=== PATIENT | female | born 1990 | race Caucasian/White ===

== ENCOUNTER 2020-05-27 20:03 | Emergency (ER) | payer OTHER ==
[2020-05-27 20:30] VITALS: TEMP 98.2; BMI 26.5
[2020-05-27] MEDS ORDERED: ACETAMINOPHEN 325 MG TABLET (FP) PO ONE (21:52)
[2020-05-27] MEDS ORDERED: ACETAMINOPHEN 325 MG TABLET (FP) ONE (22:12)
[2020-05-27 22:25] VITALS: BP 133/81; PULSE 99
== END 2020-05-27 22:24 | disposition home or self-care (01) ==
LOC: JERFT 20:03 → JER 20:03
PROC: 0X950ZZ Drainage of Left Axilla, Open Approach (ICD-10-PCS; principal; 2020-05-27)
DX: L02.412 Cutaneous abscess of left axilla (principal)
CPT/HCPCS: 10060; 36415; 87389; 99284-25

== ENCOUNTER 2023-10-09 09:23 | Day surgery (SDC) | payer OTHER ==
[2023-10-09] MEDS: FERRIC CARBOXYMALTOSE 750 MG in SODIUM CHLORIDE 250 ML IVPB ONE (09:27)
[2023-10-09 10:38] VITALS: RESP 16; TEMP 97.8
[2023-10-09 10:41] VITALS: BP 106/66; PULSE 64
== END 2023-10-09 10:30 | disposition home or self-care (01) ==
LOC: J7W 09:23 → JONCNONCHE 09:23
PROVIDERS: ATTEND Internal Medicine Hematology & Oncology
PROC: 3E033GC Introduction of Other Therapeutic Substance into Peripheral Vein, Percutaneous Approach (ICD-10-PCS; principal; 2023-10-09)
DX: E61.1 Iron deficiency (principal)
CPT/HCPCS: 96365; J1439

== ENCOUNTER 2023-10-12 14:31 | Emergency (ER) | payer OTHER ==
[2023-10-12 14:37] VITALS: BP 120/80; TEMP 98.5; BMI 27.4
[2023-10-12 15:57] LABS: INR 1.11 (0.83-1.09); PROTHROMBIN TIME (PATIENT) 12.7 SEC (9.7-13.0)
[2023-10-12 15:59] LABS: ACTIVATED PTT 19.9 SECONDS (25.2-36.5)
[2023-10-12 16:08] LABS: POTASSIUM 5.6 mmol/L (3.5-5.1)
[2023-10-12 16:10] LABS: ALBUMIN 4.1 g/dl (3.4-5.0); CALCIUM 9.4 mg/dL (8.5-10.1)
[2023-10-12 16:11] LABS: BLOOD UREA NITROGEN 11.9 mg/dL (7-18)
[2023-10-12 16:15] LABS: BILIRUBIN,TOTAL 0.4 mg/dL (0.2-1); TOT PROT 8.4 g/dl (6.4-8.2)
[2023-10-12 16:35] LABS: EPI CELLS >36 /uL (0-25.1); HYALINE CASTS 6 /uL (0-3.1); PH,URINE 6.5 (5.0-8.0); URINE APPEARANCE CLOUDY; URINE BACTERIA 902 /uL (0-1359); URINE BILIRUBIN NEGATIVE (NEGATIVE); URINE COLOR YELLOW; URINE GLUCOSE (UA) NEGATIVE (NEGATIVE); URINE KETONE TRACE (NEGATIVE); URINE LEUK ESTERASE TRACE (NEGATIVE); URINE NITRITE NEGATIVE (NEGATIVE); URINE PROTEIN 1+ (NEGATIVE); URINE RBC 29 /uL (0-23.9); URINE WBC 132 /uL (0-25.8)
[2023-10-12 16:40] LABS: CREATININE 0.7 mg/dL (0.55-1.3)
[2023-10-12] MEDS ORDERED: ACETAMINOPHEN INJECTION 100 ML IVPB ONE (17:15)
[2023-10-12 17:16] LABS: BASO % 0.6 % (0-2.0); EOS % 1.1 % (0-4.5); HEMATOCRIT 35.9 % (32.4-45.2); HEMOGLOBIN 11.7 GM/dL (10.7-15.3); LYMPH % 15.8 % (8-40); MCH 27.1 pg (25.7-33.7); MCHC 32.7 g/dl (32.0-36.0); MEAN CELL VOLUME 82.8 fl (80-96); MEAN PLT VOLUME 6.9 fl (7.5-11.1); MONO % 9.1 % (3.8-10.2); NEUT % 73.4 % (42.8-82.8); PLATELET COUNT 441 10^3/uL (134-434); RBC 4.33 M/mm3 (3.60-5.2); RDW 15.4 % (11.6-15.6); WHITE BLOOD COUNT 7.8 K/mm3 (4.0-10.0)
[2023-10-12] MEDS ORDERED: FAMOTIDINE 10 MG/ML VIAL IVPB ONE ×2 (17:16)
[2023-10-12] MEDS ORDERED: MAG HYDROX/AL HYDROX/SIMETH 30 ML UNIT-DOSE CUP ONE (17:16)
[2023-10-12] MEDS ORDERED: ONDANSETRON 4 MG/2 ML VIAL ONE (17:16)
[2023-10-12] MEDS: SODIUM CHLORIDE 0.9% 500 ML INFUS.BAG IV ONE (17:29)
[2023-10-12] MEDS: ACETAMINOPHEN 1000 MG/100 ML BAG IVPB ONE (17:29)
[2023-10-12] MEDS: MAG HYDROX/AL HYDROX/SIMETH 30 ML UNIT-DOSE CUP PO ONE (17:29)
[2023-10-12] MEDS: FAMOTIDINE 20 MG/50 ML IVPB 20 MG/50 ML MG IVPB ONE (17:29)
[2023-10-12] MEDS: ONDANSETRON 4 MG/2 ML VIAL IVPUSH ONE (17:29)
[2023-10-12 17:41] LABS: BLOOD UREA NITROGEN 10.8 mg/dL (7-18); CALCIUM 9.3 mg/dL (8.5-10.1)
[2023-10-12 17:46] LABS: BILIRUBIN,TOTAL 0.3 mg/dL (0.2-1); TOT PROT 7.7 g/dl (6.4-8.2)
[2023-10-12 17:59] LABS: CREATININE 0.7 mg/dL (0.55-1.3)
[2023-10-12] MEDS ORDERED: KETOROLAC TROMETHAMINE 15 MG/ML VIAL ONE (18:10)
[2023-10-12] MEDS: KETOROLAC TROMETHAMINE 15 MG/ML VIAL IVPUSH ONE (18:13)
[2023-10-12] MEDS ORDERED: CEPHALEXIN MONOHYDRATE 500 MG CAPSULE (UD) PO ONE (18:27)
[2023-10-12 18:40] VITALS: PULSE 82; RESP 18
== END 2023-10-12 18:40 | disposition home or self-care (01) ==
LOC: JER 14:31
PROC: 3E033GC Introduction of Other Therapeutic Substance into Peripheral Vein, Percutaneous Approach (ICD-10-PCS; principal; 2023-10-12)
PROC: 3E033NZ Introduction of Analgesics, Hypnotics, Sedatives into Peripheral Vein, Percutaneous Approach (ICD-10-PCS; 2023-10-12)
PROC: 3E0333Z Introduction of Anti-inflammatory into Peripheral Vein, Percutaneous Approach (ICD-10-PCS; 2023-10-12)
PROC: 3E033GC Introduction of Other Therapeutic Substance into Peripheral Vein, Percutaneous Approach (ICD-10-PCS; 2023-10-12)
DX: N39.0 Urinary tract infection, site not specified (principal); R10.31 Right lower quadrant pain; R53.83 Other fatigue; R51.9 Headache, unspecified; R11.0 Nausea; R19.7 Diarrhea, unspecified; Z20.822 Contact with and (suspected) exposure to COVID-19
CPT/HCPCS: 0241U-QW; 36415; 76830-TC; 80053; 81003; 83605; 83690; 84703; 85025; 85610; 85730; 86850; 86900; 86901; 87086; 93005; 93010; 99285-25; J0131

== ENCOUNTER 2023-10-16 10:11 | Day surgery (SDC) | payer OTHER ==
[2023-10-16] MEDS: FERRIC CARBOXYMALTOSE 750 MG in SODIUM CHLORIDE 250 ML IVPB ONE (09:32)
[2023-10-16 12:20] VITALS: RESP 18; TEMP 98.4
[2023-10-16 12:22] VITALS: BP 110/72; PULSE 79
== END 2023-10-16 10:30 | disposition home or self-care (01) ==
LOC: JONCNONCHE 10:11 → J7W 10:15 → JONCNONCHE 10:30
PROVIDERS: ATTEND Internal Medicine Hematology & Oncology
PROC: 3E033GC Introduction of Other Therapeutic Substance into Peripheral Vein, Percutaneous Approach (ICD-10-PCS; principal; 2023-10-16)
DX: D50.9 Iron deficiency anemia, unspecified (principal)
CPT/HCPCS: 96365; J1439

== ENCOUNTER 2024-03-04 10:25 | Emergency (ER) | payer OTHER ==
[2024-03-04 10:47] VITALS: BP 115/77; PULSE 102; RESP 17; TEMP 98.6; BMI 27.6
[2024-03-04] MEDS: SODIUM CHLORIDE 0.9% 500 ML INFUS.BAG IV ONE (12:30)
[2024-03-04] MEDS: ONDANSETRON 4 MG/2 ML VIAL IVPUSH ONE (12:40)
[2024-03-04] MEDS: ACETAMINOPHEN 1000 MG/100 ML BAG IVPB ONE (12:40)
[2024-03-04] MEDS: FAMOTIDINE 20 MG/50 ML IVPB 20 MG/50 ML MG IVPB ONE (12:40)
[2024-03-04 12:49] LABS: BASO % 0.3 % (0-2.0); EOS % 1.3 % (0-4.5); HEMATOCRIT 40.5 % (32.4-45.2); HEMOGLOBIN 13.5 GM/dL (10.7-15.3); LYMPH % 19.7 % (8-40); MCH 30.5 pg (25.7-33.7); MCHC 33.3 g/dl (32.0-36.0); MEAN CELL VOLUME 91.7 fl (80-96); MEAN PLT VOLUME 6.9 fl (7.5-11.1); MONO % 7.3 % (3.8-10.2); NEUT % 71.4 % (42.8-82.8); PLATELET COUNT 426 10^3/uL (134-434); RBC 4.42 M/mm3 (3.60-5.2); RDW 12.9 % (11.6-15.6); WHITE BLOOD COUNT 8.4 K/mm3 (4.0-10.0)
[2024-03-04] MEDS ORDERED: ACETAMINOPHEN INJECTION 100 ML ONE (12:49)
[2024-03-04] MEDS ORDERED: FAMOTIDINE 20 MG/50 ML IVPB 20 MG/50 ML MG IVPB ONE (12:49)
[2024-03-04] MEDS ORDERED: ONDANSETRON 4 MG/2 ML VIAL ONE (12:49)
[2024-03-04 13:06] LABS: POTASSIUM 3.7 mmol/L (3.5-5.1)
[2024-03-04 13:08] LABS: ALBUMIN 4.3 g/dl (3.4-5.0); CALCIUM 9.6 mg/dL (8.5-10.1); MAGNESIUM 1.9 mg/dL (1.8-2.4)
[2024-03-04 13:11] LABS: CREATININE 0.6 mg/dL (0.55-1.3)
[2024-03-04 13:12] LABS: BILIRUBIN,TOTAL 0.7 mg/dL (0.2-1)
[2024-03-04 13:13] LABS: TOT PROT 7.4 g/dl (6.4-8.2)
[2024-03-04 16:41] LABS: HIV INTERPRETATION NEGATIVE (NEGATIVE)
== END 2024-03-04 14:03 | disposition home or self-care (01) ==
LOC: JER 10:25
PROC: 3E033GC Introduction of Other Therapeutic Substance into Peripheral Vein, Percutaneous Approach (ICD-10-PCS; principal; 2024-03-04)
PROC: 3E033NZ Introduction of Analgesics, Hypnotics, Sedatives into Peripheral Vein, Percutaneous Approach (ICD-10-PCS; 2024-03-04)
PROC: 3E033GC Introduction of Other Therapeutic Substance into Peripheral Vein, Percutaneous Approach (ICD-10-PCS; 2024-03-04)
DX: R11.2 Nausea with vomiting, unspecified (principal); R19.7 Diarrhea, unspecified
CPT/HCPCS: 36415; 80053; 83690; 83735; 84703; 85025; 86803; 87389; 99284-25; J0131

== ENCOUNTER 2024-04-30 22:18 | Emergency (ER) | payer OTHER ==
[2024-04-30 22:39] VITALS: RESP 20; TEMP 99; BMI 26.2
[2024-04-30 23:07] VITALS: BP 112/70; PULSE 86
[2024-04-30 23:46] LABS: BASO % 0.8 % (0-2.0); EOS % 0.9 % (0-4.5); HEMATOCRIT 38.2 % (32.4-45.2); HEMOGLOBIN 12.6 GM/dL (10.7-15.3); LYMPH % 16.6 % (8-40); MCH 30.3 pg (25.7-33.7); MCHC 32.9 g/dl (32.0-36.0); MEAN CELL VOLUME 92.1 fl (80-96); MEAN PLT VOLUME 6.9 fl (7.5-11.1); MONO % 7.6 % (3.8-10.2); NEUT % 74.1 % (42.8-82.8); PLATELET COUNT 491 10^3/uL (134-434); RBC 4.14 M/mm3 (3.60-5.2); RDW 12.9 % (11.6-15.6); WHITE BLOOD COUNT 11.4 K/mm3 (4.0-10.0)
[2024-05-01 00:16] LABS: POTASSIUM 4.2 mmol/L (3.5-5.1)
[2024-05-01 00:18] LABS: CALCIUM 9.8 mg/dL (8.5-10.1)
[2024-05-01 00:19] LABS: BLOOD UREA NITROGEN 12.7 mg/dL (7-18)
[2024-05-01 00:22] LABS: CREATININE 0.6 mg/dL (0.55-1.3)
[2024-05-01 00:23] LABS: BILIRUBIN,TOTAL 0.2 mg/dL (0.2-1); TOT PROT 7.2 g/dl (6.4-8.2)
== END 2024-05-01 01:15 | disposition home or self-care (01) ==
LOC: JER 22:18
DX: R00.2 Palpitations (principal); R55 Syncope and collapse
CPT/HCPCS: 36415; 71046-TC-FY; 80053; 84443; 84484; 85025; 93005; 93010; 99285-25